=== PATIENT | female | born 1995 | race Hispanic/Latino ===

== ENCOUNTER 2023-02-22 20:34 | Observation (INO) | payer OTHER, SELFPAY ==
[~2023-02-22] VITALS: Ht 162.6 cm; Wt 93.4 kg
[2023-02-22] VITALS (10 sets, daily range): BP systolic 119–144; BP diastolic 57–87; PULSE 19–120; RESP 18; TEMP 99.5; O2SAT 97–100
[2023-02-22] MEDS ORDERED: NS 1000ML 1,000 ML IV ONE (21:00)
[2023-02-22] MEDS ORDERED: ZOSYN 3.375 GM 3.375 GM in NS 100ML 100 ML IV SCH (21:30)
[2023-02-22] MEDS ORDERED: NS 100ML 100 ML IV ONE (21:40)
[2023-02-22] MEDS ORDERED: LOVENOX SQ SCH (22:00)
[2023-02-22 22:11] LABS: ALBUMIN(ML) 3.3 g/dL (3.4-5.0); ALBUMIN/GLOBULIN RATIO 0.767; CARBON DIOXIDE 25.3 mmol/L (20.0-32); CREATININE SERUM 0.77 mg/dL (0.59-1.40); EST GFR, NON-AA 89.3 (>/=60); POTASSIUM 3.3 mmol/L (3.6-5.2)
[2023-02-22] MEDS ORDERED: TORADOL ONE (22:14)
[2023-02-22] MEDS ORDERED: BRIDION IV ONE (22:14)
[2023-02-22] MEDS ORDERED: OFIRMEV 1000 MG/100 ML 100 ML IV ONE (22:14)
[2023-02-22] MEDS ORDERED: DIPRIVAN IV ONE (22:14)
[2023-02-22] MEDS ORDERED: XYLOCAINE 2% 5ML VIAL ONE (22:14)
[2023-02-22] MEDS ORDERED: SUBLIMAZE 100MCG/2ML ONE (22:14)
[2023-02-22] MEDS ORDERED: DECADRON ONE (22:14)
[2023-02-22] MEDS ORDERED: NS 3000ML IRR IR ONE (22:21)
[2023-02-22] MEDS ORDERED: SODIUM CHLORIDE IRR BOTTLE IR ONE (22:21)
[2023-02-22] MEDS ORDERED: LOVENOX SQ ONE (22:23)
[2023-02-22] MEDS ORDERED: ISOTON GENTAMICIN 80 MG/100 ML 100 ML IV ONE (22:24)
[2023-02-22] MEDS ORDERED: ZYNRELEF 400-12 MG/14 ML VIAL IL ONE (22:24)
[2023-02-22] MEDS ORDERED: ZYNRELEF 200-6 MG/7 ML VIAL IL ONE (22:26)
[2023-02-22] MEDS ORDERED: DILAUDID IV PRN (22:30)
[2023-02-22] MEDS ORDERED: MORPHINE SULFATE IV PRN (22:30)
[2023-02-22] MEDS ORDERED: D5NS 1,000 ML IV ONE (22:30)
[2023-02-22] MEDS ORDERED: ZOFRAN IV PRN (22:30)
[2023-02-23] VITALS (18 sets, daily range): BP systolic 115–144; BP diastolic 57–107; PULSE 89–120; RESP 16–20; TEMP 97.9–98.6; O2SAT 91–100
[2023-02-23] MEDS ORDERED: REGLAN ONE (00:37)
[2023-02-23] MEDS ORDERED: DEMEROL ONE (00:37)
[2023-02-23] MEDS ORDERED: REGLAN IV SCH (00:40)
[2023-02-23] MEDS ORDERED: LACTATED RINGERS 1,000 ML ONE (00:56)
[2023-02-23] MEDS: LACTATED RINGERS 1,000 ML IV SCH ×2 (01:00→14:51)
[2023-02-23] MEDS ORDERED: NS 100ML 100 ML IV ONE (02:35)
[2023-02-23] MEDS: ZOSYN 3.375 GM 3.375 GM in NS 100ML 100 ML IV SCH ×4 (03:19→20:05)
[2023-02-23] MEDS ORDERED: OFIRMEV 1000 MG/100 ML 100 ML IV ONE (04:50)
[2023-02-23 05:58] LABS: BASOPHIL % 0.1 % (0.0-0.2); HEMATOCRIT(ML) 32.2 % (36.0-46.0); HEMOGLOBIN 10.5 g/dL (12.0-15.0); LYMPHOCYTES # 0.88 10^3/uL1 (1.0-4.8); LYMPHOCYTES % 8.5 % (24.0-44.0); MEAN CORP HGB 27.2 pg (26-34); MEAN CORP HGB CONCENTRATION 32.6 g/dL (33-36.5); MEAN CORP VOLUME 83.4 fL (78-100); MONOCYTES # 0.2 10^3/uL (0.3-0.8); MONOCYTES % 1.5 % (5.0-12.0); NEUTROPHIL # 9.3 10^3/uL (1.8-7.7); NEUTROPHILS % 89.8 % (41.0-85.0); PLATELET COUNT 299 10^3/uL (150-400); RED BLOOD CELL 3.86 10^6/uL (4.00-5.20); RED CELL DISTRIBUTION WIDTH 16.6 % (11.5-14.5); WHITE BLOOD CELL 10.4 10^3/uL (4.5-11.0)
[2023-02-23] MEDS ORDERED: OFIRMEV 1000 MG/100 ML IV SCH (06:15)
[2023-02-23 06:22] LABS: +ADD MANUAL DIFF(NO CHRG) NO
[2023-02-23] MEDS ORDERED: D5W 1000ML/KCL 20MEQ 1,000 ML IV ONE (08:30)
[2023-02-23] MEDS: MOTRIN PO SCH ×3 (10:10→21:05)
[2023-02-23] MEDS ORDERED: AMOX1TAB61 PO (12:14)
[2023-02-23] MEDS ORDERED: TYLENOL PO PRN (14:00)
[2023-02-23] MEDS ORDERED: LOVENOX SQ SCH (18:00)
[2023-02-24 00:27] VITALS: BP 135/88; PULSE 82; RESP 18; TEMP 97.9; O2SAT 96
[2023-02-24] MEDS: ZOSYN 3.375 GM 3.375 GM in NS 100ML 100 ML IV SCH ×2 (02:16→09:40)
[2023-02-24] MEDS: LACTATED RINGERS 1,000 ML IV SCH (03:40)
[2023-02-24 05:08] VITALS: BP 126/77; PULSE 77; RESP 18; TEMP 97.6; O2SAT 96
[2023-02-24] MEDS: MOTRIN PO SCH (05:20)
[2023-02-24 06:02] LABS: BASOPHIL % 0.3 % (0.0-0.2); EOSINOPHIL # 0.1 10^3/uL (0.0-0.2); EOSINOPHIL % 1.5 % (0.0-5.0); HEMATOCRIT(ML) 29.7 % (36.0-46.0); HEMOGLOBIN 9.4 g/dL (12.0-15.0); LYMPHOCYTES % 50.6 % (24.0-44.0); MEAN CORP HGB 26.9 pg (26-34); MEAN CORP HGB CONCENTRATION 31.6 g/dL (33-36.5); MEAN CORP VOLUME 84.9 fL (78-100); MONOCYTES # 0.4 10^3/uL (0.3-0.8); MONOCYTES % 6.7 % (5.0-12.0); NEUTROPHIL # 2.7 10^3/uL (1.8-7.7); NEUTROPHILS % 40.7 % (41.0-85.0); PLATELET COUNT 271 10^3/uL (150-400); RED CELL DISTRIBUTION WIDTH 17.1 % (11.5-14.5); WHITE BLOOD CELL 6.5 10^3/uL (4.5-11.0)
[2023-02-24 06:04] LABS: +ADD MANUAL DIFF(NO CHRG) NO
[2023-02-24 06:19] LABS: ALBUMIN(ML) 2.4 g/dL (3.4-5.0); ALBUMIN/GLOBULIN RATIO 0.727; CALCIUM 7.6 mg/dL (8.4-10.5); CARBON DIOXIDE 24.3 mmol/L (20.0-32); CREATININE SERUM 0.68 mg/dL (0.59-1.40); POTASSIUM 3.3 mmol/L (3.6-5.2)
[2023-02-24 07:25] VITALS: BP 123/71; PULSE 77; RESP 17; TEMP 98.9; O2SAT 97
[2023-02-24] MEDS ORDERED: KLOR-CON 10 PO STA (08:38)
[2023-02-24] MEDS ORDERED: KLOR-CON 10 PO ONE (09:39)
[2023-02-24 11:04] VITALS: BP 114/77; PULSE 78; RESP 17; TEMP 98.2; O2SAT 98
[2023-02-24 12:04] VITALS: BP 114/77; PULSE 78; RESP 17; TEMP 98.2; O2SAT 98
== END 2023-02-24 11:50 | disposition home or self-care (01) ==
LOC: ER 20:34 → MS 21:59
PROVIDERS: ADMIT Internal Medicine; ATTEND Internal Medicine
DX: K35.30 Acute appendicitis with localized peritonitis, without perforation or gangrene (principal); D64.9 Anemia, unspecified; E66.9 Obesity, unspecified; Z68.30 Body mass index [BMI] 30.0-30.9, adult; Z79.899 Other long term (current) drug therapy
CPT/HCPCS: 44970; 99284; 80053 ×2; 36415 ×3; 88304; 84703; 96372; 96365; 96366 ×2; 96375; 85025 ×2; 83735; G0378 ×35; J1580; J7030; A4217 ×2; J1100; J0131 ×2; C9088; J3490 ×3; J2001; J1650 ×2; J2405; J2543 ×3; J1885; J3010; S5012; J7120 ×2; A4649; J2175; J2765; A6222; A6258; 80048

== ENCOUNTER → 2023-02-22 | Outpatient (CLI) | payer SELFPAY ==
[~2023-02-22] MED LIST: AMOX1TAB61 PO
[2023-02-22 15:16] LABS: BASOPHIL % 0.3 % (0.0-0.2); EOSINOPHIL # 0.1 10^3/uL (0.0-0.2); EOSINOPHIL % 1.2 % (0.0-5.0); LYMPHOCYTES # 2.69 10^3/uL1 (1.0-4.8); LYMPHOCYTES % 24.7 % (24.0-44.0); MEAN CORP HGB 26.3 pg (26-34); MONOCYTES # 0.6 10^3/uL (0.3-0.8); MONOCYTES % 5.6 % (5.0-12.0); NEUTROPHIL # 7.4 10^3/uL (1.8-7.7); RED CELL DISTRIBUTION WIDTH 16.3 % (11.5-14.5)
[2023-02-22 15:30] LABS: GLUCOSE 91 mg/dL (74-106)
--- NOTE | 2023-02-22 18:46 | DIREP ---
PROCEDURE:CT ABDOMEN/PELVIS W/ CONTRAST COMPARISON:None. INDICATIONS:R10.31 RLQ PAIN, R10.813 RLQ ABDOMINAL TENDERNESS TECHNIQUE:Axial images were created through the abdomen and pelvis with non-ionic intravenous contrast material. No oral contrast was administered. Sagittal and coronal reconstructions were performed from source images. FINDINGS: LUNG BASES:Normal. No visible pulmonary or pleural disease. Presumed 2.6 x 1.1 cm pericardial cyst along the right cardiophrenic margin. LIVER:Normal. No significant liver lesions are identified. BILIARY:Normal. No visible dilatation or calcification. PANCREAS:Normal. No lesion, fluid collection, ductal dilatation, or atrophy. SPLEEN:Normal. No enlargement or focal lesion. ADRENALS:Normal. No mass or enlargement. URINARY TRACT:Normal. No suspicious lesions or hydronephrosis. AORTA/VASCULAR:Normal. No aneurysm. RETROPERITONEUM:Normal. No mass or adenopathy. BOWEL/MESENTERY:The distal tip of the appendix is thickened measuring 13 mm with surrounding inflammatory changes. The proximal and mid appendix are borderline in thickness measuring 6-7 mm. The appearance is consistent with acute appendicitis most pronounced at the distal tip. No free fluid, free air, or loculated fluid collections. No intestinal obstruction. ABDOMINAL WALL:Normal. No mass or hernia. PELVIC ORGANS:Normal. No visible mass. Pelvic organs appropriate for patient age. BONES:Normal for age. No bony lesion or acute fracture. OTHER:Negative. CONCLUSION: 1. Findings consistent with acute appendicitis most pronounced at the appendiceal tip. No evidence for perforation or complications at this time. 2. Dory GEORGE was informed of these findings on 02/22/2023 at approximately 6:30 p.m. . Dictated by: Gavin Vann MD on 02/22/2023 at 06:40 PM
== END | disposition home or self-care (01) ==
LOC: RAD 14:49
PROVIDERS: ATTEND Nurse Practitioner
DX: K35.890 Other acute appendicitis without perforation or gangrene (principal)
CPT/HCPCS: 74177; 80053; 85025; 36415; 84702; Q9965

== ENCOUNTER 2025-07-07 07:55 | Day surgery (SDC) | payer BC ==
[2025-07-06 13:16] VITALS: BP 118/72; PULSE 76; RESP 16; TEMP 98; O2SAT 100
[2025-07-06 13:36] LABS: BASOPHIL # 0.0 10^3/uL (0.0-0.1); BASOPHIL % 0.5 % (0.1-1.2); EOSINOPHIL # 0.2 10^3/uL (0.0-0.2); EOSINOPHIL % 3.5 % (0.0-5.0); HEMATOCRIT(ML) 43.8 % (36.0-46.0); IG % 0.00 % (0.00-0.50); LYMPHOCYTES # 2.10 10^3/uL1 (1.0-4.8); LYMPHOCYTES % 37.0 % (24.0-44.0); MEAN CORP HGB 28.7 pg (26-34); MEAN CORP HGB CONCENTRATION 32.2 g/dL (33-36.5); MEAN CORP VOLUME 89.2 fL (78-100); MONOCYTES # 0.3 10^3/uL (0.3-0.8); MONOCYTES % 4.8 % (5.0-12.0); NEUTROPHIL # 3.1 10^3/uL (1.8-7.7); NEUTROPHILS % 54.2 % (41.0-85.0); RED BLOOD CELL 4.91 10^6/uL (4.00-5.20); RED CELL DISTRIBUTION WIDTH 16.6 % (11.5-14.5); WHITE BLOOD CELL 5.7 10^3/uL (4.5-11.0)
[2025-07-06 13:59] LABS: ALANINE AMINOTRANSFERASE(ML) 20.0 U/L (12-78); ALBUMIN(ML) 3.7 g/dL (3.4-5.0); CREATININE SERUM 0.64 mg/dL (0.59-1.40); EST GFR, NON-AA 109.0 (>/=60)
[~2025-07-07] VITALS: Ht 152.4 cm; Wt 77.7 kg
[2025-07-07] VITALS (26 sets, daily range): BP systolic 110–125; BP diastolic 47–75; PULSE 84–118; RESP 14–18; TEMP 97.1–97.8; O2SAT 94–99
[~2025-07-07 07:55] MED LIST changes: +CITA20TA6 PO; +ISOTON GENTAMICIN 80 MG/100 ML 100 ML IV ONE; +LACTATED RINGERS 1,000 ML ONE; +LOVENOX SQ ONE; +MARCAINE 0.25%-EPI 1:200,000 ONE; +NS 3000ML IRR IR ONE; +SODIUM CHLORIDE IRR BOTTLE IR ONE
[2025-07-07] MEDS: LACTATED RINGERS 1,000 ML IV SCH (08:22)
[2025-07-07] MEDS: LOVENOX SQ ONE (08:23)
[2025-07-07] MEDS ORDERED: EXPAREL 266 MG/20 ML VIAL IJ ONE (09:57)
[2025-07-07] MEDS ORDERED: ZOFRAN ONE ×2 (10:08→12:50)
[2025-07-07] MEDS ORDERED: BRIDION IV ONE (10:08)
[2025-07-07] MEDS ORDERED: DECADRON ONE (10:08)
[2025-07-07] MEDS ORDERED: XYLOCAINE 2% 5ML VIAL ONE (10:08)
[2025-07-07] MEDS ORDERED: ZEMURON IV ONE (10:09)
[2025-07-07] MEDS ORDERED: DILAUDID ONE (10:09)
[2025-07-07] MEDS ORDERED: DIPRIVAN IV ONE (10:09)
[2025-07-07] MEDS ORDERED: VERSED ONE (10:09)
[2025-07-07] MEDS ORDERED: OFIRMEV 100 ML IV ONE (10:13)
[2025-07-07] MEDS ORDERED: TORADOL ONE (10:14)
[2025-07-07] MEDS: MEFOXIN 2 GM in NS 100ML 100 ML IV ONE (10:15)
[2025-07-07] MEDS ORDERED: DILAUDID 0.5 MG/0.5 ML SYRINGE ONE (11:48)
[2025-07-07] MEDS: DILAUDID 0.5 MG/0.5 ML SYRINGE IV ONE (11:50)
[2025-07-07] MEDS ORDERED: DEMEROL ONE (11:51)
[2025-07-07] MEDS: DEMEROL IV ONE (12:00)
[2025-07-07] MEDS ORDERED: LACTATED RINGERS 1,000 ML ONE (12:06)
[2025-07-07] MEDS ORDERED: REGLAN ONE (12:43)
[2025-07-07] MEDS ORDERED: COMPAZINE ONE (12:44)
[2025-07-07] MEDS: REGLAN IV ONE (12:45)
[2025-07-07] MEDS: ZOFRAN IV ONE (12:50)
[2025-07-07] MEDS ORDERED: BENADRYL ONE (13:19)
[2025-07-07] MEDS: BENADRYL IV ONE (13:22)
[2025-07-07] MEDS ORDERED: NS 250ML 250 ML ONE (14:35)
[2025-07-07] MEDS: SIMETHICONE PO ONE (15:00)
[2025-07-07] MEDS ORDERED: SIMETHICONE ONE (15:08)
== END 2025-07-07 15:15 | disposition home or self-care (01) ==
LOC: SDC 07:55
PROVIDERS: ATTEND Surgery
DX: K81.1 Chronic cholecystitis (principal); K83.8 Other specified diseases of biliary tract; F32.A Depression, unspecified; Z98.890 Other specified postprocedural states
CPT/HCPCS: 80053; 85025; 36415; 84703; 47562; 00790; J0666; J1885; J3490 ×4; J1580; J7050; J7120 ×2; A4217 ×2; A4649 ×4; J1200; J1100; J2175; J0694; J0131; J0780; J2704; J2003; J1650; J2405 ×2; J2250; J2765; C9290